=== PATIENT | female | born 1970 | race Caucasian/White ===

== ENCOUNTER 2019-11-28 18:12 | Inpatient (IN) | payer MEDICAID ==
[~2019-11-28] VITALS: Ht 180.3 cm; Wt 166.3 kg
--- NOTE | ~2019-11-28 | CON ---
[address] [address] CONSULTATION Name: MICHELLE MERLOS Room: [address] Naila Beltran#: [id number] Admission: 11/28/19 Attend Phys: Ambrose Wilkinson, Discharge: Date of : 68 Report #: [id number] THIS REPORT FOR: //name// cc: NATALIE Tesfaye family physician/PCP NATALIE Tesfaye family physician/PCP ~ THIS REPORT FOR: //name// CC: NATALIE physician/PCP Ambrose Wilkinson DATE OF SERVICE: 11/29/2019 CONSULT REQUESTED BY: Ambrose Wilkinson MD. INDICATION FOR CONSULTATION: Shortness of breath. HISTORY OF PRESENT ILLNESS: This is a 49-year-old female with past medical history includes a history of COPD. The patient is an active smoker. The patient is not on long-term oxygen. The patient, however, does use a CPAP. She says at 16 cm of water while asleep for obstructive sleep apnea. The patient was admitted in the [facility] about a month ago and was treated for COPD exacerbation, did receive azithromycin upon discharge. The patient says that she again was feeling unwell, has had increasing shortness of breath and therefore came here and was admitted. She has had a cough. There is not much sputum. There is no chest pain. She has not had any new upper respiratory complaints. She did not report fever or chills, however, there is a single documented fever of 38.0. The patient is afebrile now. She does have swelling of lower extremities. There is no calf pain. She has heartburn, which is under control with Protonix. She has longstanding history of disturbed sleep at night as well as sleepiness during the day. These symptoms are improved, but not fully controlled with the use of CPAP. REVIEW OF SYSTEMS: I asked her 12 questions for review of systems. The patient answered to the negative except as mentioned above. PAST MEDICAL HISTORY: COPD; obstructive sleep apnea, on a CPAP at night; hypertension; depression; bipolar disorder; gastroesophageal reflux disease; hyperlipidemia. The patient takes metformin at home. It is not entirely clear to me as to whether this is for prediabetes/metabolic syndrome or whether the patient in fact has been diagnosed with diabetes. SOCIAL HISTORY: There is an extensive history of smoking. The patient still smokes about a pack a day. There is no known history of heavy alcohol use or illegal drug use. ALLERGIES: [place] [address] CONSULTATION Name: MICHELLE MERLOS [address]: [address]#: [id number] Admission: 11/28/19 Attend Phys: Ambrose Wilkinson, Discharge: Date of : 68 Report #: [id number] CUR[facility]. HOME MEDICATIONS: The list is also in [facility] [facility] and is reviewed. FAMILY HISTORY: There is no pertinent family history known at this time. PHYSICAL EXAMINATION: GENERAL: She is alert, awake and oriented, does not appear to be in any distress. She is not on supplemental oxygen. VITAL SIGNS: She is saturating in the low 90s, has a pulse of 104, blood pressure 135/83. She is afebrile now with a temperature of 36.3. There is a single elevation of temperature to 38.0 earlier. Body mass index is elevated to 50.2. HEENT: Head is normocephalic and atraumatic. Pupils are equal and reactive. There is no throat erythema. Airway is Mallampati 4. NECK: Does not show raised JVP, asymmetry, mass or lymph nodes. CHEST: Symmetrical expansion on inspection and palpation. On auscultation, breath sounds are significantly decreased and expirations are prolonged. I do not hear any added sounds. HEART: Regular. There is no murmur. ABDOMEN: Soft and nontender. EXTREMITIES: Lower extremities show 1+ edema. There is no calf tenderness. SKIN: Dry and intact. NEUROLOGICAL: Moves all extremities bilaterally equally and spontaneously with no focal deficit identified. LABORATORY DATA: The patient's CTA chest films as well as report are reviewed. This is as discussed below in assessment and plan. Venous Dopplers are negative. Chest x-ray also reviewed. The patient's CBC as well as chemistries are in [facility] and these are reviewed. Coagulation studies also in [facility] reviewed. She did have a screening performed for COVID-19 antigen and that was negative. Arterial blood gas showing a pCO2 of 43.5, in [facility] reviewed. The patient did receive one dose of Lasix yesterday in the Emergency Room. ASSESSMENT AND PLAN: 1. Shortness of breath. Primarily, this appears to be secondary to chronic obstructive pulmonary disease exacerbation and the patient appears to be bronchospastic. In addition, she does have some fluid overload as well. 2. Chronic obstructive pulmonary disease exacerbation. We will continue with Solu-Medrol. I did adjust the dose. We will continue with DuoNeb as well. Agree with treating her with an antibiotic. I only see minimal infiltrates on her chest x-ray. We will follow considering that she recently received azithromycin and may consider switching her over to doxycycline. There is single elevation in temperature to 38.0, the patient is now afebrile, she did receive Tylenol, we will follow temperature curve. [address] [address] CONSULTATION Name: MICHELLE MERLOS Room: [address] Ruby#: [id number] Admission: 11/28/19 Attend Phys: Ambrose Wilkinson, Discharge: Date of : 68 Report #: [id number] 3. Fluid overload. I feel that she is mildly fluid overloaded. Creatinine is higher today than it was yesterday. She did receive IV dye. She also received a dose of Lasix in the Emergency Room yesterday. Therefore, I decided not to give her more Lasix now. Should she deteriorate, I will consider the same today. Otherwise, we will reassess tomorrow and if the creatinine remains stable, consider Lasix tomorrow. We will do a 2D echo as well. 4. Obstructive sleep apnea, could be placed on a CPAP or BiPAP at night. She does not have her own CPAP. I ordered VAPS for now, can be changed later, but she does need positive airway pressure while asleep. 5. Edema. Venous Dopplers were also checked and are negative. 6. Lung nodules. There are subcentimeter lung nodules noted on her CT. I recommended a repeat CT chest in 6 months without contrast. Thanks for this consultation. By: [id number] kayla Holcomb
[2019-11-28 18:20] VITALS: BP 103/79
[2019-11-28] MEDS ORDERED: NEURONTIN 300M300 M2 PO (18:32)
[2019-11-28] MEDS ORDERED: TRAMADOL 50 MG50 MG PO (18:32)
[2019-11-28] MEDS ORDERED: ABILIFY10 MG PO (18:32)
[2019-11-28] MEDS ORDERED: PROTONIX40 M2 PO (18:33)
[2019-11-28] MEDS ORDERED: BACLOFEN5 MG PO (18:33)
[2019-11-28] MEDS ORDERED: ZYRTEC10 M5 PO (18:34)
[2019-11-28] MEDS ORDERED: VASOTEC5 MG PO (18:34)
[2019-11-28] MEDS ORDERED: DESYREL150 MG PO (18:34)
[2019-11-28] MEDS ORDERED: METFORMIN HCL500 M3 PO (18:34)
[2019-11-28] MEDS ORDERED: LOVASTATIN 20 M20 MG PO (18:34)
[2019-11-28] MEDS ORDERED: BUPROPION XL300 MG PO (18:35)
[2019-11-28 18:37] LABS: ABSOLUTE BASOPHILS 0.1 thou/uL (0.0-0.2); ABSOLUTE EOSINOPHILS 0.3 thou/uL (0.0-0.7); ABSOLUTE LYMPHOCYTES 2.7 thou/uL (0.8-5.3); ABSOLUTE MONOCYTES 0.3 thou/uL (0.0-1.2); ABSOLUTE NEUTROPHILS 4.9 thou/uL (1.6-8.1); BASOPHILS 1.3 %; EOSINOPHILS 3.2 %; HEMATOCRIT 40.5 % (37.0-47.0); HEMOGLOBIN 13.8 gm/dL (12.0-15.0); LYMPHOCYTES 32.8 %; MCH 30.8 pg (26.0-34.0); MCHC 34.1 g/dL (28.0-37.0); MCV 90.4 fL (80.0-100.0); MONOCYTES 3.9 %; MPV 9.4 fl. (7.2-11.1); NUCLEATED RBCS 0 /100WBC; PLATELET COUNT* 167 thou/uL (150-400); POLYS 58.8 %; RBC 4.48 mil/uL (4.20-5.00); RDW-CV 15.5 % (10.5-14.5); WBC 8.3 thou/uL (4.0-11.0)
[2019-11-28 18:42] LABS: INFLUENZA A ANTIGEN Negative (Negative); INFLUENZA B ANTIGEN Negative (Negative)
[2019-11-28 18:46] LABS: CALCIUM 9.2 mg/dL (8.5-10.1); CREATININE 1.1 mg/dL (0.6-1.3); POTASSIUM 3.7 mmol/L (3.5-5.1)
[2019-11-28 18:57] LABS: ALBUMIN 3.1 g/dL (3.4-5.0); TOTAL BILIRUBIN 0.2 mg/dL (<0.1-1.0); TOTAL PROTEIN 7.1 g/dL (6.4-8.2)
[2019-11-29] VITALS (7 sets, daily range): BP systolic 121–155; BP diastolic 51–87
[2019-11-29 00:20] LABS: BE 4.7 mmol/L (-2 to +3); PCO2 43.5 mmHg (35.0-45.0); PO2 81.6 mmHg (75.0-100.0); pH 7.447 (7.340-7.450)
--- NOTE | 2019-11-29 01:27 | NUR ---
ASSUMED CARE OF PT AT 0025. PT IS ALERT AND ORIENTED. VSS. PERRLA. NO COMPLAINTS OF PAIN. PT IS ON ROOM AIR. PT IS IN SINUS RYTHM ON THE TELEMETRY. PT IS RESTING COMFORTABLY IN BED. RESPIRATIONS ARE EVEN AND NONLABORED. WILL CONTINUE TO MONITOR PT.
--- NOTE | 2019-11-29 07:10 | NUR ---
CHANGE OF SHIFT, BEDSIDE RDPORT GIVEN PATIENT SEEN AT BEDSIDE, IN BED RESTING ASSUMED PATIENT CARE
[2019-11-29 11:45] LABS: CALCIUM 8.9 mg/dL (8.5-10.1); CREATININE 1.2 mg/dL (0.6-1.3); MAGNESIUM 1.5 mg/dL (1.8-2.4); POTASSIUM 3.6 mmol/L (3.5-5.1)
--- NOTE | 2019-11-29 11:48 | NUR ---
Pt is A&O. Resides at home with her niece, niece is also her paid inhome caregiver through Pt's [employer]. Niece is employed by [employer], and assists Pt 2.75 hrs/day 7 days/week. Niece assist with cooking, cleanging and ADLs as needed. Pt uses a walker or cane for mobility. Pt has a neb and cpap, does not wear home o2. Goal is home at dc, no needs anticipated. Per , anticipate dc tomorrow, Pt remains SOB, tapered o2 overnight. Pulm consult pending.
--- NOTE | 2019-11-29 11:53 | EKG ---
[place] [address] ELECTROCARDIOGRAM REPORT Name: MICHELLE MERLOS Room: [address]#: [id number] Admission: 11/28/19 Attend Phys: Ambrose Rowe Discharge: Date of : 68 Date of Service: 11/28/19 1828 Report #: [id number] THIS REPORT FOR: //name// [facility] ED Test Date: 2019-11-28 Test Time: 18:28:22 Pat Name: MICHELLE MERLOS Department: Room: [facility] Gender: F Licensed Electrician: : 1970 Requested By: Ángel Garcia Order Number: [id number] MD: Tre Voss Measurements Intervals [place] Rate: 96 P: 46 ND: 152 QRS: 72 QRSD: 101 T: 3 QT: 361 QTc: 457 Interpretive Statements Sinus rhythm Probable left atrial enlargement Minor interventricular conduction delay Borderline T abnormalities, inferior and anterior leads Baseline wander in lead(s) II,III,aVL,aVF,V1,V3 No previous ECG available for comparison Electronically Signed On 11-29-2019 11:53:33 CDT by Tre Voss [email or web address] <ELECTRONICALLY SIGNED> By: Tre Voss MD, [facility] 11/29/19 1153 1828 1828 Tre Voss MD, [facility] /EPI
--- NOTE | 2019-11-29 16:33 | 2DMMODE ---
[place] [address] 2 D/M-MODE ECHOCARDIOGRAM Name: MICHELLE MERLOS Dipti Room: [address] Ruby#: [id number] Admission: 11/28/19 Attend Phys: Ambrose Rowe Discharge: Date of : 68 Date of Service: 11/29/19 1633 Report #: [id number] THIS REPORT FOR: cc: FAM - No family physician/PCP FAM - No family physician/PCP Tre Voss MD [facility] ~ APPROVED REPORT Study performed: 11/29/2019 15:45:21 EXAM: Comprehensive 2D, Doppler, and color-flow Echocardiogram Patient Location: In-Patient Room #: [facility] Status: routine BSA: 2.71 HR: 99 bpm Rhythm: NSR Other Information Study Quality: Adequate Indications Dyspnea 2D Dimensions IVSd: 10.83 (7-11mm) LVOT Diam: 21.29 (18-24mm) LVDd: 52.89 mm PWd: 9.44 (7-11mm) LVDs: 23.34 (25-40mm) Aortic Root: 33.11 mm Volumes Left Atrial Volume (Systole) LA ESV Index: 22.20 mL/m2 Aortic Valve AoV Peak Junaid.: 1.49 m/s AO Peak Gr.: 8.82 mmHg LVOT Max P.51 mmHg AO Mean Gr.: 4.04 mmHg LVOT Mean P.71 mmHg LVOT Max V: 1.17 m/s AO V2 VTI: 24.47 cm LVOT Mean V: 0.76 m/s PEDRO (VTI): 3.65 cm2 LVOT V1 VTI: 25.10 [place] [address] 2 D/M-MODE ECHOCARDIOGRAM Name: MICHELLE MERLOS Room: [address] M.R.#: [id number] Admission: 11/28/19 Attend Phys: Ambrose Rowe Discharge: Date of : 68 Date of Service: 11/29/19 1633 Report #: [id number] Mitral Valve E/A Ratio: 0.88 MV Decel. Time: 219.63 ms MV E Max Junaid.: 1.34 m/s MV PHT: 63.69 ms MVA (PHT): 3.45 cm2 TDI E/Medial E': 6.09 Medial E' Junaid.: 0.22 m/s Pulmonary Valve PV Peak Junaid.: 1.17 m/s PV Peak Gr.: 5.48 mmHg Left Ventricle The left ventricle is normal size. There is normal LV segmental wall motion. There is normal left ventricular wall thickness. Left ventricular systolic function is normal. The left ventricular ejection fraction is within the normal range. LVEF is 60%. Grade I - abnormal relaxation pattern. Right Ventricle The right ventricle is normal size. The right ventricular systolic function is normal. Atria The left atrium size is normal. The right atrium size is normal. Aortic Valve Mild aortic valve sclerosis. No aortic regurgitation is present. There is no aortic valvular stenosis. Mitral Valve The mitral valve is normal in structure. There is no mitral valve regurgitation noted. No evidence of mitral valve stenosis. Tricuspid Valve The tricuspid valve is normal in structure. There is no tricuspid valve regurgitation noted. Pulmonic Valve The pulmonary valve is normal in structure. There is no pulmonic valvular regurgitation[place] [address] 2 D/M-MODE ECHOCARDIOGRAM Name: MICHELLE MERLOS Room: [address] Ruby#: [id number] Admission: 11/28/19 Attend Phys: Ambrose Rowe Discharge: Date of : 68 Date of Service: 11/29/19 1633 Report #: [id number] The aortic root is normal in size. IVC is not well visualized. Pericardium There is no pericardial effusion. <Conclusion> The left ventricle is normal size. There is normal left ventricular wall thickness. Left ventricular systolic function is normal. The left ventricular ejection fraction is within the normal range. LVEF is 60%. Grade I - abnormal relaxation pattern. The right ventricle is normal size. The left atrium size is normal. Mild aortic valve sclerosis. No aortic regurgitation is present. There is no aortic valvular stenosis. The mitral valve is normal in structure. The tricuspid valve is normal in structure. There is no pericardial effusion. There is normal LV segmental wall motion. <ELECTRONICALLY SIGNED> By: Tre Voss MD, FACC 11/29/19 1633 1633 1633 Tre Voss MD, FACC /INF
[2019-11-30] VITALS: BP 128/74
[2019-11-30 04:43] VITALS: BP 126/70
[2019-11-30 04:55] LABS: HEMATOCRIT 39.3 % (37.0-47.0); HEMOGLOBIN 13.3 gm/dL (12.0-15.0); MCH 30.8 pg (26.0-34.0); MCHC 33.8 g/dL (28.0-37.0); MPV 9.5 fl. (7.2-11.1); RBC 4.32 mil/uL (4.20-5.00); RDW-CV 15.2 % (10.5-14.5); WBC 15.5 thou/uL (4.0-11.0)
[2019-11-30 05:16] LABS: CALCIUM 9.1 mg/dL (8.5-10.1); CREATININE 1.3 mg/dL (0.6-1.3); POTASSIUM 4.1 mmol/L (3.5-5.1)
--- NOTE | 2019-11-30 05:45 | NUR ---
PT CARE ASSUMED AT 1930. PT SLEPT WITH BIPAP AT NIGHT. ALERT AND ORIENTED X4. CALL LIGHT WITHIN REACH AND BED IN LOW POSITION. C/O PAIN, MEDICATION GIVEN PER EMAR. HOURLY ROUNDING DONE FOR PT SAFETY.
--- NOTE | 2019-11-30 10:54 | NUR ---
Nutrition: Pt admitted with SOA and cellulitis. Seen for OBE consult. H/o COPD, JADA, OBE, HTN, bipolar. Regular diet ordered. Eating well. Wt: 366#. She stated she has gained 4-5# since being on steroids. BG is elevated 193, alb 3.1. She stated she eats well at home and she is learning about CHOs b/c her nephew has been diagnosed with DM1. She did not want any nutrition educ today. She did ask for double portions - RD ordered. Consider mild risk.
[2019-11-30 12:27] VITALS: BP 113/55
--- NOTE | 2019-11-30 12:51 | NUR ---
M/s status. Probable dc to home tomorrow, resume in home care. No CM needs.
--- NOTE | 2019-11-30 16:56 | NUR ---
ORDER RECEIVED TO TRANSFER PATIENT TO [facility]. REPORT CALLED TO RN ON JSSI.
--- NOTE | 2019-11-30 17:12 | NUR ---
RECEIVED TO ROOM 108 VIA W/C BY [facility] FROM 2ND FLOOR. UP AD JOSH INTO BED. FACE AND NOSE RED, OBESE WOMAN. ON ROOM AIR SATING 93%. NO C/O AT THIS TIME. WILL CONTINUE TO MONITOR. PATIENT DID ASK ABOUT SNACKS FOR LATER AND INFORMED HER TO LET US KNOW WHEN SHE NEEDED A SNACK. PATIENT VERBALIZED UNDERSTANDING.
[2019-11-30 20:33] VITALS: BP 137/75
--- NOTE | 2019-12-01 04:43 | NUR ---
PATIENT SLEPT ALL SHIFT. SHE IS ALERT AND ORIENTED. ROOM AIR, UP AD JOSH TO RESTROOM. SHE RECEIVED ALL MEDS SCHEDULED AND DID NOT REQUIRE ADDITIONAL PAIN MEDICATION. SHE DID NOT REPORT ANY DISCOMFORT/NAUSEA. CPAP USED AT NIGHT. CHEST XRAY/LABS THIS AM. HOB ELEVATED. WILL CONTINUE TO FOLLOW PLAN OF CARE.
[2019-12-01 07:47] LABS: HEMATOCRIT 38.9 % (37.0-47.0); HEMOGLOBIN 13.1 gm/dL (12.0-15.0); MCHC 33.8 g/dL (28.0-37.0); MCV 91.7 fL (80.0-100.0); MPV 9.5 fl. (7.2-11.1); RBC 4.24 mil/uL (4.20-5.00); RDW-CV 15.1 % (10.5-14.5); WBC 17.2 thou/uL (4.0-11.0)
[2019-12-01 08:15] VITALS: BP 133/88
[2019-12-01 08:18] LABS: CALCIUM 9.4 mg/dL (8.5-10.1); CREATININE 1.1 mg/dL (0.6-1.3); MAGNESIUM 2.3 mg/dL (1.8-2.4); POTASSIUM 4.5 mmol/L (3.5-5.1)
[2019-12-01 14:47] VITALS: BP 133/88
[2019-12-01 15:35] VITALS: BP 133/88
--- NOTE | 2019-12-01 16:15 | NUR ---
PATIENT DISCHARGED FROM UNIT AT 1605. ALERT AND ORIENTED X 4. VITAL SIGNS STABLE ON ROOM AIR. IV DISCONTINUED. PAIN BEING MANAGED WITH PO MEDICATION. DENIES NAUSE AT THIS TIME. MEDICATION INFORMATION, DISCHARGE INSTRUCTIONS, AND SCRIPTS GIVEN TO PATIENT. LEFT WITH ALL BELONGINGS. PATIENT LEFT WITH FRIEND VIA TRUCK.
[2019-12-01 16:18] VITALS: BP 133/88
[2019-12-01 17:10] VITALS: BP 133/88
== END 2019-12-01 16:05 | disposition home or self-care (01) | DRG 189 ==
LOC: M.ERS 18:12 → M.2W 23:24 → M.TBA-ER 23:24 → M.2W 23:24 → M.ORTHSURG 11-30 17:09
PROVIDERS: Emergency Medicine; Family Medicine; ADMIT Family Medicine; ATTEND Family Medicine
PROC: 5A12012 Performance of Cardiac Output, Single, Manual (ICD-10-PCS; principal; 2019-11-29)
PROC: 5A09357 Assistance with Respiratory Ventilation, Less than 24 Consecutive Hours, Continuous Positive Airway Pressure (ICD-10-PCS; 2019-11-30)
DX: J96.01 Acute respiratory failure with hypoxia (principal); J44.1 Chronic obstructive pulmonary disease with (acute) exacerbation; L03.119 Cellulitis of unspecified part of limb; Z68.43 Body mass index [BMI] 50.0-59.9, adult; I10 Essential (primary) hypertension; F32.9 Major depressive disorder, single episode, unspecified; Z20.828 Contact with and (suspected) exposure to other viral communicable diseases; G47.33 Obstructive sleep apnea (adult) (pediatric); E78.5 Hyperlipidemia, unspecified; Z87.891 Personal history of nicotine dependence; R91.1 Solitary pulmonary nodule; E66.01 Morbid (severe) obesity due to excess calories; E88.81 Metabolic syndrome and other insulin resistance; K21.9 Gastro-esophageal reflux disease without esophagitis; R16.1 Splenomegaly, not elsewhere classified; E83.42 Hypomagnesemia; Z79.899 Other long term (current) drug therapy; E87.70 Fluid overload, unspecified

== ENCOUNTER 2020-09-24 10:01 | Emergency (ER) | payer MEDICAID ==
[~2020-09-24] VITALS: Ht 180.3 cm; Wt 163.3 kg
[~2020-09-24 10:01] MED LIST: ABILIFY10 MG PO; BACLOFEN5 MG PO; BUPROPION XL300 MG PO; DESYREL150 MG PO; LOVASTATIN 20 M20 MG PO; METFORMIN HCL500 M3 PO; NEURONTIN 300M300 M2 PO; PROTONIX40 M2 PO; TRAMADOL 50 MG50 MG PO; VASOTEC5 MG PO; ZYRTEC10 M5 PO
[2020-09-24 10:34] LABS: ABSOLUTE BASOPHILS 0.1 thou/uL (0.0-0.2); ABSOLUTE EOSINOPHILS 0.2 thou/uL (0.0-0.7); ABSOLUTE LYMPHOCYTES 2.5 thou/uL (0.8-5.3); ABSOLUTE MONOCYTES 0.4 thou/uL (0.0-1.2); ABSOLUTE NEUTROPHILS 6.5 thou/uL (1.6-8.1); EOSINOPHILS 2.2 %; HEMOGLOBIN 13.8 gm/dL (12.0-15.0); LYMPHOCYTES 25.4 %; MCH 29.5 pg (26.0-34.0); MCHC 32.9 g/dL (28.0-37.0); MCV 89.9 fL (80.0-100.0); MONOCYTES 4.6 %; MPV 9.9 fl. (7.2-11.1); NUCLEATED RBCS 0 /100WBC; PLATELET COUNT* 155 thou/uL (150-400); POLYS 66.8 %; RBC 4.67 mil/uL (4.20-5.00); RDW-CV 16.9 % (10.5-14.5); WBC 9.8 thou/uL (4.0-11.0)
[2020-09-24 11:21] LABS: CREATININE 1.1 mg/dL (0.6-1.3); POTASSIUM 4.4 mmol/L (3.5-5.1)
[2020-09-24] MEDS ORDERED: DOXYCYCLINE 10100 MG PO ×2 (11:25→11:39)
[2020-09-24] MEDS ORDERED: MOBIC7.5 MG PO ×2 (11:26→11:39)
[2020-09-24 11:35] VITALS: BP 107/55
== END 2020-09-24 11:35 | disposition home or self-care (01) ==
LOC: M.ERS 10:01
PROVIDERS: Nurse Practitioner
DX: M79.661 Pain in right lower leg (principal); M79.662 Pain in left lower leg

== ENCOUNTER 2020-10-26 22:53 | Emergency (ER) | payer MEDICAID ==
[~2020-10-26] VITALS: Ht 180.3 cm; Wt 155.1 kg
[~2020-10-26 22:53] MED LIST changes: +DOXYCYCLINE 10100 MG PO; +MOBIC7.5 MG PO
[2020-10-26] MEDS ORDERED: CHILDREN'S NA10.8 ML NARES (22:58)
[2020-10-26] MEDS ORDERED: TRAMADOL 50 MG50 MG PO (22:58)
[2020-10-26] MEDS ORDERED: VENTOLIN HFA 1818 GM INH (22:58)
[2020-10-26] MEDS ORDERED: TRAZODONE HCL100 MG PO (22:58)
[2020-10-26] MEDS ORDERED: SYMBICORT160 MCG/4. INH (22:58)
[2020-10-26] MEDS ORDERED: ZYRTEC10 M5 PO (22:58)
[2020-10-26] MEDS ORDERED: BACLOFEN 10MG T10 MG PO (22:59)
[2020-10-26] MEDS ORDERED: ABILIFY15 MG PO (22:59)
[2020-10-26] MEDS ORDERED: DICLOFENAC SOD50 MG PO (22:59)
[2020-10-26] MEDS ORDERED: LOVASTAT10 PO (22:59)
[2020-10-26] MEDS ORDERED: ENALAPRIL-HCTZ1 EACH PO (22:59)
[2020-10-26] MEDS ORDERED: TOPROL XL25 MG PO (23:00)
[2020-10-26] MEDS ORDERED: IPRATROPIUM BRO15 ML INH (23:00)
[2020-10-27] MEDS ORDERED: HYDROCODON-ACE1 EAC8 PO (07:04)
[2020-10-27 07:34] VITALS: BP 122/72
== END 2020-10-27 07:35 | disposition home or self-care (01) ==
LOC: M.ERS 22:53
DX: M25.551 Pain in right hip (principal); J44.9 Chronic obstructive pulmonary disease, unspecified; I10 Essential (primary) hypertension; G89.29 Other chronic pain; Z88.8 Allergy status to other drugs, medicaments and biological substances

== ENCOUNTER 2021-01-16 09:56 | Inpatient (IN) | payer MEDICAID ==
[~2021-01-16] VITALS: Ht 180.3 cm; Wt 147.4 kg
[~2021-01-16 09:56] MED LIST changes: +ABILIFY15 MG PO; +BACLOFEN 10MG T10 MG PO; +CHILDREN'S NA10.8 ML NARES; +DICLOFENAC SOD50 MG PO; +ENALAPRIL-HCTZ1 EACH PO; +HYDROCODON-ACE1 EAC8 PO; +IPRATROPIUM BRO15 ML INH; +LOVASTAT10 PO; +SYMBICORT160 MCG/4. INH; +TOPROL XL25 MG PO; +TRAZODONE HCL100 MG PO; +VENTOLIN HFA 1818 GM INH
[2021-01-16 10:28] VITALS: BP 151/87
[2021-01-16 11:17] LABS: ABSOLUTE BASOPHILS 0.1 thou/uL (0.0-0.2); ABSOLUTE EOSINOPHILS 0.3 thou/uL (0.0-0.7); ABSOLUTE LYMPHOCYTES 2.4 thou/uL (0.8-5.3); ABSOLUTE MONOCYTES 0.5 thou/uL (0.0-1.2); ABSOLUTE NEUTROPHILS 5.6 thou/uL (1.6-8.1); BASOPHILS 1.1 %; EOSINOPHILS 3.4 %; HEMATOCRIT 41.8 % (37.0-47.0); HEMOGLOBIN 13.5 gm/dL (12.0-15.0); LYMPHOCYTES 27.4 %; MCH 28.3 pg (26.0-34.0); MCHC 32.3 g/dL (28.0-37.0); MCV 87.6 fL (80.0-100.0); MONOCYTES 5.5 %; MPV 10.5 fl. (7.2-11.1); NUCLEATED RBCS 0 /100WBC; PLATELET COUNT* 140 thou/uL (150-400); POLYS 62.6 %; RBC 4.77 mil/uL (4.20-5.00); RDW-CV 16.2 % (10.5-14.5); WBC 8.9 thou/uL (4.0-11.0)
[2021-01-16 11:25] LABS: CREATININE 0.7 mg/dL (0.6-1.3); POTASSIUM 4.4 mmol/L (3.5-5.1)
[2021-01-16 11:29] LABS: ALBUMIN 3.2 g/dL (3.4-5.0); TOTAL BILIRUBIN 0.2 mg/dL (<0.1-1.0); TOTAL PROTEIN 7.2 g/dL (6.4-8.2)
[2021-01-16 14:33] VITALS: BP 151/99
[2021-01-16 16:00] VITALS: BP 171/86
[2021-01-16 16:15] LABS: BE 5.2 mmol/L (-2 to +3); PO2 62.1 mmHg (75.0-100.0)
[2021-01-16 16:21] LABS: pH 7.252 (7.340-7.450)
[2021-01-16 16:22] LABS: PCO2 83.1 mmHg (35.0-45.0)
--- NOTE | 2021-01-16 17:22 | 2DMMODE ---
[place] [address] 2 D/M-MODE ECHOCARDIOGRAM Name: MICHELLE MERLOS Dipti Room: [address] IN [facility]#: [id number] Admission: 01/16/21 Attend Phys: Jacqueline Acosta, Discharge: Date of : 68 Date of Service: 01/16/21 1721 Report #: [id number] THIS REPORT FOR: cc: Sai Choe Ahmad W. DO Liston, Michael J. MD [facility] ~ APPROVED REPORT Study performed: 01/16/2021 15:01:52 EXAM: Comprehensive 2D, Doppler, and color-flow Echocardiogram Patient Location: In-Patient Room #: [facility] Status: routine BSA: 2.59 HR: 94 bpm BP: 151/99 mmHg Rhythm: NSR Other Information Study Quality: Good Indications Congestive Heart Failure 2D Dimensions IVSd: 12.05 (7-11mm) LVOT Diam: 22.55 (18-24mm) LVDd: 44.69 mm PWd: 10.05 (7-11mm) LVDs: 26.92 (25-40mm) Aortic Root: 31.47 mm Volumes Left Atrial Volume (Systole) LA ESV Index: 26.10 mL/m2 Aortic Valve AoV Peak Junaid.: 1.75 m/s AO Peak Gr.: 12.30 mmHg LVOT Max P.12 mmHg AO Mean Gr.: 7.18 mmHg LVOT Mean P.07 mmHg LVOT Max V: 1.24 m/s AO V2 VTI: 26.85 cm LVOT Mean V: 0.82 m/s PEDRO (VTI): 3.06 cm2 LVOT V1 VTI: 20.60 [place] [address] 2 D/M-MODE ECHOCARDIOGRAM Name: MICHELLE MERLOS Room: [address] IN .R.#: [id number] Admission: 01/16/21 Attend Phys: Jacqueline Acosta, Discharge: Date of : 68 Date of Service: 01/16/21 1721 Report #: [id number] Mitral Valve E/A Ratio: 0.99 MV Decel. Time: 214.28 ms MV E Max Junaid.: 1.46 m/s MV PHT: 62.14 ms MVA (PHT): 3.54 cm2 TDI E/Lateral E': 11.23 E/Medial E': 11.23 Medial E' Junaid.: 0.13 m/s Lateral E' Junaid.: 0.13 m/s Pulmonary Valve PV Peak Junaid.: 1.23 m/s PV Peak Gr.: 6.04 mmHg Tricuspid Valve RAP Estimate: 5.00 mmHg TR Peak Gr.: 52.35 mmHg RVSP: 57.00 mmHg PA Pressure: 57.00 mmHg Left Ventricle The left ventricle is normal size. There is normal LV segmental wall motion. There is normal left ventricular wall thickness. Left ventricular systolic function is normal. LVEF is 60-65%. Transmitral Doppler flow pattern suggests impaired LV relaxation. Right Ventricle The right ventricle is normal size. The right ventricular systolic function is normal. Atria The left atrium size is normal. The right atrium size is normal. Aortic Valve Mild aortic valve sclerosis. No aortic regurgitation is present. There is no aortic valvular stenosis. Mitral Valve The mitral valve is normal in structure. There is no mitral valve regurgitation noted. No evidence of mitral valve stenosis. Tricuspid Valve The tricuspid valve is normal in structure. Trace tricuspid regurgitation. Moderate pulmonary [place] [address] 2 D/M-MODE ECHOCARDIOGRAM Name: MICHELLE MERLOS Room: [address] IN [facility]#: [id number] Admission: 01/16/21 Attend Phys: Jacqueline Acosta, Discharge: Date of : 68 Date of Service: 01/16/21 1721 Report #: [id number] Pulmonic Valve The pulmonary valve is normal in structure. There is no pulmonic valvular regurgitation. Great Vessels The aortic root is normal in size. IVC is normal in size and collapses >50% with inspiration. Pericardium There is no pericardial effusion. <Conclusion> The left ventricle is normal size. There is normal left ventricular wall thickness. Left ventricular systolic function is normal. LVEF is 60-65%. Transmitral Doppler flow pattern suggests impaired LV relaxation. There is normal LV segmental wall motion. Trace tricuspid regurgitation. Moderate pulmonary hypertension. IVC is normal in size and collapses >50% with inspiration. <ELECTRONICALLY SIGNED> By: Kee Sosa MD, FACC 01/16/211720 20 20 Kee Sosa MD, FACC /INF
--- NOTE | 2021-01-16 17:28 | EKG ---
[place] [address] ELECTROCARDIOGRAM REPORT Name: MICHELLE MERLOS Dipti Room: [address] IN [facility].#: [id number] Admission: 01/16/21 Attend Phys: Jacqueline Acosta, Discharge: Date of : 68 Date of Service: 01/16/21 1049 Report #: [id number] THIS REPORT FOR: //name// [facility] ED Test Date: 2021-01-16 Test Time: 10:49:00 Pat Name: MICHELLE MERLOS Department: Room: [facility] Gender: F Hand Counter: STUDENT : 1970 Requested By: Jim Ellis Order Number: [id number] MD: Kee Sosa Measurements Intervals [place] Rate: 87 P: 47 AK: 144 QRS: 75 QRSD: 95 T: -14 QT: 366 QTc: 441 Interpretive Statements Sinus rhythm Ventricular premature complex Low voltage, precordial leads Borderline T wave abnormalities Compared to ECG 11/28/2019 18:28:22 Ventricular premature complex(es) now present Low QRS voltage now present T-wave abnormality still present Electronically Signed On 01-16-2021 17:28:30 CDT by Kee Sosa [email or web address] <ELECTRONICALLY SIGNED> By: Kee Sosa MD, FACC 01/16/21 1728 1049 1049 Kee Sosa MD, [facility] /EPI
[2021-01-16 18:59] LABS: BE 5.7 mmol/L (-2 to +3); PO2 71.7 mmHg (75.0-100.0); pH 7.346 (7.340-7.450)
[2021-01-16 19:03] LABS: PCO2 62.9 mmHg (35.0-45.0)
[2021-01-16 20:00] VITALS: BP 136/72
[2021-01-17] VITALS (7 sets, daily range): BP systolic 103–132; BP diastolic 54–79
[2021-01-17 08:19] LABS: HEMATOCRIT 41.5 % (37.0-47.0); HEMOGLOBIN 13.2 gm/dL (12.0-15.0); MCH 27.8 pg (26.0-34.0); MCHC 31.9 g/dL (28.0-37.0); MCV 87.3 fL (80.0-100.0); MPV 10.6 fl. (7.2-11.1); RBC 4.76 mil/uL (4.20-5.00); WBC 7.7 thou/uL (4.0-11.0)
[2021-01-17 08:51] LABS: ALBUMIN 2.8 g/dL (3.4-5.0); CALCIUM 8.9 mg/dL (8.5-10.1); CREATININE 0.7 mg/dL (0.6-1.3); POTASSIUM 4.4 mmol/L (3.5-5.1); TOTAL BILIRUBIN 0.3 mg/dL (<0.1-1.0); TOTAL PROTEIN 6.8 g/dL (6.4-8.2)
[2021-01-17 15:27] LABS: BE 6.5 mmol/L (-2 to +3); PO2 64.4 mmHg (75.0-100.0); pH 7.387 (7.340-7.450)
[2021-01-17 15:31] LABS: PCO2 56.8 mmHg (35.0-45.0)
[2021-01-18] VITALS (7 sets, daily range): BP systolic 113–140; BP diastolic 48–78
[2021-01-18 07:54] LABS: HEMATOCRIT 40.2 % (37.0-47.0); HEMOGLOBIN 12.8 gm/dL (12.0-15.0); MCHC 31.9 g/dL (28.0-37.0); MCV 87.9 fL (80.0-100.0); MPV 10.1 fl. (7.2-11.1); RBC 4.58 mil/uL (4.20-5.00); RDW-CV 15.8 % (10.5-14.5); WBC 10.9 thou/uL (4.0-11.0)
[2021-01-18 08:25] LABS: CALCIUM 9.5 mg/dL (8.5-10.1); CREATININE 0.8 mg/dL (0.6-1.3); MAGNESIUM 2.1 mg/dL (1.8-2.4); POTASSIUM 4.2 mmol/L (3.5-5.1)
[2021-01-18 18:51] LABS: URINE BILIRUBIN NEGATIVE (Negative); URINE BLOOD NEGATIVE (Negative); URINE CLARITY CLEAR; URINE COLOR YELLOW; URINE GLUCOSE-RANDOM NEGATIVE (Negative); URINE KETONES NEGATIVE (Negative); URINE LEUKOCYTES-REFLEX TRACE (Negative); URINE NITRITE-REFLEX NEGATIVE (Negative); URINE PROTEIN NEGATIVE (Negative); URINE UROBILINOGEN 0.2 E.U./dl (0.2-1.0)
[2021-01-18 19:08] LABS: BACTERIA-REFLEX None Seen /HPF (None Seen); CASTS None Seen /LPF (None Seen); CRYSTALS None Seen /LPF (None Seen); MUCUS None Seen strn/LPF (None Seen); SQUAMOUS 4-10 Moderate /LPF (0-3); URINE RBC None Seen /HPF (0-2); URINE WBC-REFLEX 0-5 Rare /HPF (0-5)
[2021-01-19 04:09] VITALS: BP 140/76
[2021-01-19 04:37] LABS: HEMATOCRIT 40.4 % (37.0-47.0); MCH 28.1 pg (26.0-34.0); MCHC 32.3 g/dL (28.0-37.0); MCV 87.1 fL (80.0-100.0); MPV 9.9 fl. (7.2-11.1); RBC 4.63 mil/uL (4.20-5.00); RDW-CV 15.9 % (10.5-14.5)
[2021-01-19 04:54] LABS: CALCIUM 9.7 mg/dL (8.5-10.1); CREATININE 0.9 mg/dL (0.6-1.3); MAGNESIUM 2.1 mg/dL (1.8-2.4); POTASSIUM 4.4 mmol/L (3.5-5.1)
[2021-01-19 08:00] VITALS: BP 128/69
[2021-01-19 12:58] VITALS: BP 128/72
[2021-01-19 17:18] VITALS: BP 118/60
[2021-01-19 19:45] VITALS: BP 104/52
[2021-01-20 00:14] VITALS: BP 105/82
[2021-01-20 04:52] VITALS: BP 115/58
[2021-01-20 08:00] VITALS: BP 103/54
[2021-01-20 12:00] VITALS: BP 101/53
[2021-01-20 16:00] VITALS: BP 116/57
[2021-01-20 20:00] VITALS: BP 110/62
[2021-01-21 07:40] VITALS: BP 106/52
[2021-01-21 16:42] VITALS: BP 124/62
[2021-01-21 17:34] LABS: ABSOLUTE BASOPHILS 0.1 thou/uL (0.0-0.2); ABSOLUTE LYMPHOCYTES 1.8 thou/uL (0.8-5.3); ABSOLUTE MONOCYTES 0.5 thou/uL (0.0-1.2); ABSOLUTE NEUTROPHILS 7.7 thou/uL (1.6-8.1); BASOPHILS 1.1 %; EOSINOPHILS 0.3 %; HEMOGLOBIN 13.5 gm/dL (12.0-15.0); LYMPHOCYTES 17.8 %; MCH 28.1 pg (26.0-34.0); MCHC 32.1 g/dL (28.0-37.0); MCV 87.5 fL (80.0-100.0); MONOCYTES 4.7 %; MPV 9.9 fl. (7.2-11.1); NUCLEATED RBCS 0 /100WBC; PLATELET COUNT* 137 thou/uL (150-400); POLYS 76.1 %; RDW-CV 15.7 % (10.5-14.5); WBC 10.2 thou/uL (4.0-11.0)
[2021-01-21 17:49] LABS: ALBUMIN 2.9 g/dL (3.4-5.0); CALCIUM 8.8 mg/dL (8.5-10.1); CREATININE 0.7 mg/dL (0.6-1.3); MAGNESIUM 2.1 mg/dL (1.8-2.4); POTASSIUM 4.6 mmol/L (3.5-5.1); TOTAL BILIRUBIN 0.2 mg/dL (<0.1-1.0); TOTAL PROTEIN 6.7 g/dL (6.4-8.2)
[2021-01-21 20:00] VITALS: BP 127/68
[2021-01-22 08:21] VITALS: BP 119/59
[2021-01-22 12:00] VITALS: BP 102/53
[2021-01-22 16:00] VITALS: BP 131/54
[2021-01-22 20:15] VITALS: BP 135/54
[2021-01-23 08:45] VITALS: BP 117/56
[2021-01-23 15:45] VITALS: BP 117/56
[2021-01-23 16:00] VITALS: BP 148/87
[2021-01-23 17:15] VITALS: BP 117/56
== END 2021-01-23 18:00 | disposition home or self-care (01) | DRG 291 ==
LOC: M.ERS 09:56 → M.2W 12:31 → M.TBA-ER 12:31 → M.2W 14:57
PROVIDERS: Emergency Medicine Emergency Medical Services; Internal Medicine Critical Care Medicine; ADMIT Internal Medicine; ATTEND Internal Medicine
PROC: 5A09357 Assistance with Respiratory Ventilation, Less than 24 Consecutive Hours, Continuous Positive Airway Pressure (ICD-10-PCS; principal; 2021-01-16)
PROC: 5A09357 Assistance with Respiratory Ventilation, Less than 24 Consecutive Hours, Continuous Positive Airway Pressure (ICD-10-PCS; 2021-01-17)
PROC: 5A09357 Assistance with Respiratory Ventilation, Less than 24 Consecutive Hours, Continuous Positive Airway Pressure (ICD-10-PCS; 2021-01-18)
PROC: 5A09357 Assistance with Respiratory Ventilation, Less than 24 Consecutive Hours, Continuous Positive Airway Pressure (ICD-10-PCS; 2021-01-19)
PROC: 5A09357 Assistance with Respiratory Ventilation, Less than 24 Consecutive Hours, Continuous Positive Airway Pressure (ICD-10-PCS; 2021-01-20)
PROC: 5A09357 Assistance with Respiratory Ventilation, Less than 24 Consecutive Hours, Continuous Positive Airway Pressure (ICD-10-PCS; 2021-01-22)
DX: I11.0 Hypertensive heart disease with heart failure (principal); J96.21 Acute and chronic respiratory failure with hypoxia; J96.22 Acute and chronic respiratory failure with hypercapnia; I50.33 Acute on chronic diastolic (congestive) heart failure; L03.116 Cellulitis of left lower limb; J44.1 Chronic obstructive pulmonary disease with (acute) exacerbation; Z68.42 Body mass index [BMI] 45.0-49.9, adult; I10 Essential (primary) hypertension; F32.9 Major depressive disorder, single episode, unspecified; G89.29 Other chronic pain; M54.9 Dorsalgia, unspecified; F17.210 Nicotine dependence, cigarettes, uncomplicated; E66.01 Morbid (severe) obesity due to excess calories; I27.20 Pulmonary hypertension, unspecified; Z20.822 Contact with and (suspected) exposure to COVID-19; Z88.8 Allergy status to other drugs, medicaments and biological substances; Z79.899 Other long term (current) drug therapy

== ENCOUNTER 2021-04-19 03:40 | Inpatient (IN) | payer MEDICAID ==
[~2021-04-19] VITALS: Ht 11 cm; Wt 158.8 kg
[2021-04-19 03:47] VITALS: BP 154/95
[2021-04-19 04:41] LABS: ABSOLUTE EOSINOPHILS 0.3 thou/uL (0.0-0.7); ABSOLUTE LYMPHOCYTES 1.9 thou/uL (0.8-5.3); ABSOLUTE MONOCYTES 0.5 thou/uL (0.0-1.2); ABSOLUTE NEUTROPHILS 6.5 thou/uL (1.6-8.1); BASOPHILS 0.1 %; EOSINOPHILS 2.8 %; HEMOGLOBIN 13.6 gm/dL (12.0-15.0); LYMPHOCYTES 20.7 %; MCH 28.2 pg (26.0-34.0); MCHC 32.4 g/dL (28.0-37.0); MCV 87.2 fL (80.0-100.0); MONOCYTES 5.3 %; MPV 10.3 fl. (7.2-11.1); NUCLEATED RBCS 0 /100WBC; PLATELET COUNT* 165 thou/uL (150-400); POLYS 71.1 %; RBC 4.81 mil/uL (4.20-5.00); RDW-CV 17.9 % (10.5-14.5); WBC 9.2 thou/uL (4.0-11.0)
[2021-04-19 04:51] LABS: BE 0.4 mmol/L (-2 to +3); PO2 85.7 mmHg (75.0-100.0)
[2021-04-19 04:53] LABS: PCO2 74.6 mmHg (35.0-45.0); pH 7.227 (7.340-7.450)
[2021-04-19 05:04] LABS: CALCIUM 8.6 mg/dL (8.5-10.1); CREATININE 0.7 mg/dL (0.6-1.3); POTASSIUM 4.2 mmol/L (3.5-5.1)
[2021-04-19 05:08] LABS: ALBUMIN 3.2 g/dL (3.4-5.0); TOTAL BILIRUBIN 0.3 mg/dL (<0.1-1.0)
[2021-04-19 09:25] VITALS: BP 135/84
[2021-04-19 13:27] VITALS: BP 150/82
[2021-04-19 17:27] VITALS: BP 135/73
[2021-04-19 21:24] VITALS: BP 128/72
[2021-04-20 01:25] VITALS: BP 150/81
[2021-04-20 04:15] LABS: HEMATOCRIT 44.2 % (37.0-47.0); MCH 27.8 pg (26.0-34.0); MCHC 31.7 g/dL (28.0-37.0); MCV 87.6 fL (80.0-100.0); MPV 10.1 fl. (7.2-11.1); RBC 5.05 mil/uL (4.20-5.00); RDW-CV 17.3 % (10.5-14.5); WBC 11.7 thou/uL (4.0-11.0)
[2021-04-20 04:31] LABS: CALCIUM 8.8 mg/dL (8.5-10.1); CREATININE 0.7 mg/dL (0.6-1.3); POTASSIUM 4.6 mmol/L (3.5-5.1)
[2021-04-20 05:25] VITALS: BP 151/88
[2021-04-20 09:51] LABS: URINE BILIRUBIN NEGATIVE (Negative); URINE BLOOD 2+ (Negative); URINE CLARITY CLEAR; URINE COLOR YELLOW; URINE GLUCOSE-RANDOM NEGATIVE (Negative); URINE KETONES NEGATIVE (Negative); URINE LEUKOCYTES-REFLEX NEGATIVE (Negative); URINE NITRITE-REFLEX NEGATIVE (Negative); URINE PROTEIN NEGATIVE (Negative); URINE SPECIFIC GRAVITY 1.015 (1.005-1.030); URINE UROBILINOGEN 0.2 E.U./dl (0.2-1.0)
[2021-04-20 10:02] LABS: SQUAMOUS 0-3 Few /LPF (0-3)
[2021-04-20 10:03] LABS: CASTS None Seen /LPF (None Seen); CRYSTALS None Seen /LPF (None Seen); MUCUS None Seen strn/LPF (None Seen); URINE RBC 0-2 Rare /HPF (0-2); URINE WBC-REFLEX None Seen /HPF (0-5)
[2021-04-20 10:06] VITALS: BP 129/59
[2021-04-20 10:39] VITALS: BP 143/73
[2021-04-20] MEDS ORDERED: PREDNISONE 10 M10 MG PO (10:48)
[2021-04-20] MEDS ORDERED: TESSALON PERLE100 MG PO (10:48)
[2021-04-20] MEDS ORDERED: AZITHROMYCIN500 MG PO (10:48)
--- NOTE | 2021-04-20 11:11 | EKG ---
[place] [address] ELECTROCARDIOGRAM REPORT Name: MICHELLE MERLOS Room: [address] ADM IN [facility]#: [id number] Admission: 04/19/21 Attend Phys: Reina Rollins Discharge: Date of : 68 Date of Service: 04/19/21 0413 Report #: [id number] THIS REPORT FOR: //name// [facility] ED Test Date: 2021-04-19 Test Time: 04:13:51 Pat Name: MICHELLE MERLOS Department: Room: [facility] Gender: F Icing Maker: KYLIE : 1970 Requested By: Anita Dukes Order Number: [id number] MD: Tre Voss Measurements Intervals [place] Rate: 105 P: 46 TN: 155 QRS: 74 QRSD: 101 T: -11 QT: 367 QTc: 486 Interpretive Statements Sinus tachycardia Left atrial enlargement Borderline repolarization abnormality Borderline prolonged QT interval Baseline wander in lead(s) V1 Compared to ECG 01/16/2021 10:49:00 Atrial abnormality now present Sinus rate has increased Ventricular premature complex(es) no longer present T-wave abnormality no longer present Electronically Signed On 04-20-2021 11:11:03 HYDROGENATION OPERATOR by Tre Voss [email or web address] <ELECTRONICALLY SIGNED> By: Tre Voss MD, [facility] 04/20/21 1111 0413 0413 Tre Voss MD, [facility] /EPI
[2021-04-20 13:38] VITALS: BP 143/73
--- NOTE | 2021-04-20 16:04 | NUR ---
CM CONTACTED MEDICAID PRE AUTH LINE [phone]. PT WAS APPROVED. APPROVAL NUMBER IS [id number]. NIKA FAXED ORDERS TO [facility] [phone].
== END 2021-04-20 16:50 | disposition home or self-care (01) | DRG 189 ==
LOC: M.ERS 03:40 → M.TBA-ER 05:27 → M.2W 04-20 10:16
PROVIDERS: Personal Emergency Response Attendant; ADMIT Internal Medicine; ATTEND Internal Medicine
PROC: 5A09357 Assistance with Respiratory Ventilation, Less than 24 Consecutive Hours, Continuous Positive Airway Pressure (ICD-10-PCS; principal; 2021-04-19)
PROC: 5A09357 Assistance with Respiratory Ventilation, Less than 24 Consecutive Hours, Continuous Positive Airway Pressure (ICD-10-PCS; 2021-04-20)
DX: J96.02 Acute respiratory failure with hypercapnia (principal); Z68.45 Body mass index [BMI] 70 or greater, adult; J44.1 Chronic obstructive pulmonary disease with (acute) exacerbation; E66.01 Morbid (severe) obesity due to excess calories; I10 Essential (primary) hypertension; F31.9 Bipolar disorder, unspecified; G89.29 Other chronic pain; M54.9 Dorsalgia, unspecified; Z20.822 Contact with and (suspected) exposure to COVID-19; Z79.899 Other long term (current) drug therapy; Z88.8 Allergy status to other drugs, medicaments and biological substances